=== PATIENT | female | born 1975 | race Caucasian/White ===

== ENCOUNTER 2020-08-22 10:56 | Outpatient (REF) | payer MEDICAID, SELFPAY | END 2020-08-22 10:57 | disposition home or self-care (01) | LOC: HO.SCI 10:56 | DX: Z13.89 Encounter for screening for other disorder (principal) ==

== ENCOUNTER 2020-10-31 12:08 | Outpatient (REF) | payer MEDICAID, SELFPAY ==
--- NOTE | 2020-10-31 12:12 | MM_ITS ---
EXAMINATION: MM SCREENING DIGITAL BREAST TOMOSYNTHESIS, BILATERAL CLINICAL INFORMATION: Screening. Asymptomatic. No prior breast imaging. Age 45. No known family history breast cancer. The lifetime risk of breast cancer based on the Tyrer-Cuzick Model is 11%. COMPARISON: None (current study represents initial baseline exam). TECHNIQUE: Digital breast tomosynthesis is performed in both the craniocaudal and mediolateral oblique views along with computer-aided detection (CAD). Synthesized 2D images are generated from the tomosynthesis. Additional exaggerated right CC view is provided. FINDINGS: The breasts are heterogeneously dense, which may obscure small masses (ACR BI-RADS breast composition Category c). The right breast shows no mass or architectural abnormality. Neither breast shows abnormal calcifications. The axilla and skin contours are unremarkable. The left breast has asymmetric density posterior outer quadrant on CC tomography, 5.8 cm from nipple. There is also asymmetric density 4:00 posterior position 4 cm from nipple on MLO view. These areas may be separate entities, and both possibly related to incompletely compressed glandular tissue. Patient will be recalled to fully characterize baseline appearance. MM/MM tomosynthesis screening BI IMPRESSION: 1. Left: Asymmetric densities posterior outer left breast. 2. Right: No mammographic evidence of malignancy. ASSESSMENT: BI-RADS 0: Incomplete - Need Additional Imaging Evaluation RECOMMENDATION: 1. Additional views of the left breast (3-D spot exaggerated CC, 3-D spot steep MLO). 2. Targeted ultrasound if warranted after review of the additional views. 3. Radiology department staff will contact the patient for additional imaging. This patient's information was entered into a reminder system with a target due date for their next mammogram.
== END 2020-10-31 12:09 | disposition home or self-care (01) ==
LOC: HO.MAMMO 12:08
PROVIDERS: PCP Student in an Organized Health Care Education/Training Program; Visit Provider Student in an Organized Health Care Education/Training Program
DX: Z12.31 Encounter for screening mammogram for malignant neoplasm of breast (principal)
CPT/HCPCS: 77063; 77067

== ENCOUNTER 2020-11-30 13:22 | Outpatient (REF) | payer MEDICAID, SELFPAY ==
--- NOTE | 2020-11-30 13:27 | MM_ITS ---
EXAMINATION: MM DIAGNOSTIC DIGITAL BREAST TOMOSYNTHESIS, LEFT CLINICAL INFORMATION: Recall from baseline exam for asymmetric density outer and lower left breast. TC score 11%. No family history breast cancer. COMPARISON: Mammography: 10/31/2020 (baseline) TECHNIQUE: Digital breast tomosynthesis is performed. 2D images are generated from the tomosynthesis. The following views are obtained: Spot MLO, exaggerated CC, spot exaggerated CC FINDINGS: The breasts are heterogeneously dense, which may obscure small masses (ACR BI-RADS breast composition Category c). Additional views show no mass or architectural abnormality or persistent focal asymmetric density. Results are discussed with the patient at time of visit. MM/MM tomosynthesis added views L IMPRESSION: Additional views show no persistent asymmetric density. ASSESSMENT: BI-RADS 2: Benign RECOMMENDATION: Routine annual mammography screening. This patient's information was entered into a reminder system with a target due date for their next mammogram.
== END 2020-11-30 13:23 | disposition home or self-care (01) ==
LOC: HO.MAMMO 13:22
PROVIDERS: PCP Student in an Organized Health Care Education/Training Program; Visit Provider Student in an Organized Health Care Education/Training Program
DX: R92.2 Inconclusive mammogram (principal)
CPT/HCPCS: 77061; 77065

== ENCOUNTER 2021-10-25 08:35 | Outpatient (REF) | payer MEDICAID, SELFPAY ==
--- NOTE | ~2021-10-25 | XR_ITS ---
EXAMINATION: XR LUMBOSACRAL SPINE CLINICAL INFORMATION: Low back pain COMPARISON: None TECHNIQUE: Three views of the lumbosacral spine. 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 Normal bony mineralization. No vertebral compression, spondylolisthesis, or disc space narrowing. No destructive process. There is a gentle dextrocurvature which could be positional. The SI joints and visualized sacrum are unremarkable. Large amount of stool is seen throughout the colon. No gaseous dilatation of bowel. XR/XR lumbar spine 2-3V IMPRESSION: Unremarkable examination.
== END 2021-10-25 08:36 | disposition home or self-care (01) ==
LOC: HO.XRAY 08:35
PROVIDERS: Absent Provider Student in an Organized Health Care Education/Training Program; PCP Student in an Organized Health Care Education/Training Program; Visit Provider Family Medicine
DX: M54.50 Low back pain, unspecified (principal)
CPT/HCPCS: 72100

== ENCOUNTER 2021-12-13 09:02 | Outpatient (REF) | payer MEDICAID, SELFPAY ==
--- NOTE | ~2021-12-13 | MM_ITS ---
EXAMINATION: MM SCREENING DIGITAL BREAST TOMOSYNTHESIS, BILATERAL CLINICAL INFORMATION: Screening. Asymptomatic. The lifetime risk of breast cancer based on the Tyrer-Cuzick Model is 10.2%. COMPARISON: Mammography: November 30, 2020 and October 31, 2020 TECHNIQUE: Digital breast tomosynthesis is performed in both the craniocaudal and mediolateral oblique views along with computer-aided detection (CAD). Synthesized 2D images are generated from the tomosynthesis. Additional left exaggerated craniocaudal view performed. FINDINGS: The breasts are heterogeneously dense, which may obscure small masses (ACR BI-RADS breast composition Category c). There are no significant masses, abnormal calcifications, or other abnormalities. MM/MM tomosynthesis screening BI IMPRESSION: There are no significant changes from prior study. ASSESSMENT: BI-RADS 1: Negative RECOMMENDATION: Routine annual mammography screening. This patient's information was entered into a reminder system with a target due date for their next mammogram.
== END 2021-12-13 09:03 | disposition home or self-care (01) ==
LOC: HO.MAMMO 09:02
PROVIDERS: Visit Provider Student in an Organized Health Care Education/Training Program
DX: Z12.31 Encounter for screening mammogram for malignant neoplasm of breast (principal)
CPT/HCPCS: 77063; 77067

== ENCOUNTER 2022-04-18 08:34 | Outpatient (REF) | payer MEDICAID, SELFPAY ==
--- NOTE | ~2022-04-18 | XR_ITS ---
EXAMINATION: XR KNEE, LEFT CLINICAL INFORMATION: Pain left knee COMPARISON: None TECHNIQUE: Four views of the left knee. FINDINGS: No fracture, dislocation, or suprapatellar effusion. Normal bony mineralization. No joint narrowing or erosive change or chondrocalcinosis. No lateralization or tilting patella. XR/XR knee LT 4V IMPRESSION: Normal left knee.
== END 2022-04-18 08:35 | disposition home or self-care (01) ==
LOC: HO.XRAY 08:34
PROVIDERS: PCP Student in an Organized Health Care Education/Training Program; Visit Provider Family Medicine
DX: M25.562 Pain in left knee (principal)
CPT/HCPCS: 73564

== ENCOUNTER 2022-12-16 07:34 | Outpatient (REF) | payer MEDICAID, SELFPAY ==
--- NOTE | ~2022-12-16 | MM_ITS ---
EXAMINATION: MM SCREENING DIGITAL BREAST TOMOSYNTHESIS, BILATERAL CLINICAL INFORMATION: Screening. Asymptomatic. The lifetime risk of breast cancer based on the Tyrer-Cuzick Model is 10%. COMPARISON: Mammography: 04/12/2022, 11/30/2020, 10/31/2020 (baseline). TECHNIQUE: Digital breast tomosynthesis is performed in both the craniocaudal and mediolateral oblique views along with computer-aided detection (CAD). Synthesized 2D images are generated from the tomosynthesis. FINDINGS: The breasts are heterogeneously dense, which may obscure small masses (ACR BI-RADS breast composition Category c). There are no significant masses, abnormal calcifications, or other abnormalities. Breast tissue composition borders on average fibroglandular. No architectural abnormality or developing density or significant change from prior studies. MM/MM tomosynthesis screening BI IMPRESSION: No mammographic evidence of malignancy. ASSESSMENT: BI-RADS 1: Negative RECOMMENDATION: Routine annual mammography screening. This patient's information was entered into a reminder system with a target due date for their next mammogram.
== END 2022-12-16 07:35 | disposition home or self-care (01) ==
LOC: HO.MAMMO 07:34
PROVIDERS: Visit Provider Student in an Organized Health Care Education/Training Program
DX: Z12.31 Encounter for screening mammogram for malignant neoplasm of breast (principal)
CPT/HCPCS: 77063; 77067

== ENCOUNTER 2023-12-23 07:03 | Outpatient (REF) | payer OTHER, MEDICAID, SELFPAY ==
--- NOTE | ~2023-12-23 | MM_ITS ---
EXAMINATION: MM SCREENING DIGITAL BREAST TOMOSYNTHESIS, BILATERAL CLINICAL INFORMATION: Screening. Asymptomatic. COMPARISON: Mammography: This study is compared with prior exams dating back to 10/31/2020 TECHNIQUE: Digital breast tomosynthesis is performed in both the craniocaudal and mediolateral oblique views along with computer-aided detection (CAD). Synthesized 2D images are generated from the tomosynthesis. 5 views in total. FINDINGS: The breasts are heterogeneously dense, which may obscure small masses (ACR BI-RADS breast composition Category c). There are no significant masses, abnormal calcifications, or other abnormalities. Parenchymal pattern is stable. MM/MM tomosynthesis screening BI IMPRESSION: No mammographic evidence of malignancy. ASSESSMENT: BI-RADS BI-RADS 1 - Negative RECOMMENDATION: Routine annual mammography screening. 1 year F/U This examination should not preclude the clinical evaluation of a suspicious palpable abnormality. This patient's information was entered into a reminder system with a target due date for their next mammogram.
== END 2023-12-23 07:04 | disposition home or self-care (01) ==
LOC: HO.MAMMO 07:03
PROVIDERS: PCP Student in an Organized Health Care Education/Training Program; Visit Provider Student in an Organized Health Care Education/Training Program
DX: Z12.31 Encounter for screening mammogram for malignant neoplasm of breast (principal)
CPT/HCPCS: 77063; 77067

== ENCOUNTER 2025-01-04 07:18 | Outpatient (REF) | payer OTHER, SELFPAY ==
--- NOTE | ~2025-01-04 | MM_ITS ---
EXAMINATION: MM SCREENING DIGITAL BREAST TOMOSYNTHESIS, BILATERAL CLINICAL INFORMATION: Screening. Asymptomatic. COMPARISON: Mammography: Comparison is made with available priors TECHNIQUE: Digital breast mammography with tomosynthesis is performed in both the craniocaudal and mediolateral oblique views along with computer-aided detection (CAD). FINDINGS: The breasts are heterogeneously dense, which may obscure small masses (ACR BI-RADS breast composition Category c). There are no significant masses, abnormal calcifications, or other abnormalities. MM/MM tomosynthesis screening BI IMPRESSION: No mammographic evidence of malignancy. ASSESSMENT: BI-RADS BI-RADS 1 - Negative RECOMMENDATION: Routine annual mammography screening. 1 year F/U This examination should not preclude the clinical evaluation of a suspicious palpable abnormality. This patient's information was entered into a reminder system with a target due date for their next mammogram. Electronically signed by: Carmen Lawrence DO 01/06/2025 06:10 AM [facility]
--- OUTSIDE RECORDS SUMMARY | 2025-01-04 07:21 | XMS_ITS | Clinical Summary ---
Author Organization [employer] Address [address] [place] [address] [address] [place] [address] Care Team Providers Care Molder Labels Name Role Phone Ana Prather MD Primary Care Provider [phone] Social History Tobacco Use Types Packs/Day Years Used Date Smoking Tobacco: Never Assessed Comments Unknown Sex and Gender Information Value Date Recorded Sex Assigned at Female 09/02/2022 10:37 AM EDT Legal Sex Female 10:37 AM EDT Gender Identity Female 09/02/2022 10:37 AM EDT Sexual Orientation Straight 09/02/2022 10 :37 AM EDT Last Filed Vital Signs Vital Sign Reading Time Taken Comments Blood Pressure 116/68 04/16/2022 12:06 AM EDT Pulse 76 04/16/2022 12:06 AM EDT Temperature - - Respiratory Rate - - Oxygen Saturation - - Inhaled Oxygen Concentration - - Weight 62.1 kg (137 lb) 04/16/2022 12:06 AM EDT Height 167 cm (5' 5.75 ) 04/16/2022 12:06 AM EDT Body Mass Index 22.28 04/16/2022 12:06 AM EDT Plan of Treatment Health Maintenance Due Date Last Done Comments CT Colonography 1974 Colonoscopy 1974 Colorectal Cancer Screening 1974 Depression Screening 1974 FIT DNA/Cologuard 1974 FIT 1974 FOBT 1974 Sigmoidoscopy 1974 Alcohol/Substance Use Screening 1986 Tobacco Screening 1986 Family Planning (PISQ) 1989 Hepatitis B Vaccines (1 of 3 - 19+ 3-dose series) 1993 Pap Smear 10/03/2023 10/03/2020 Pneumococcal Vaccine: 50+ Years (1 of 1 - PCV) 2024 Zoster Vaccines (1 of 2) 2024 COVID-19 Vaccine (3 - season) 2024 04/19/2021, 03/22/2021 Influenza Vaccine (#1) 2024 10/03/2020 Mammogram 12/23/2024 12/23/2023, 12/04, 12/13/2021, Additional history exists Cervical Cancer Screening 10/03/2025 HPV/Cotest 10/03/2025 10/03/2020 DTaP/Tdap/Td Vaccines (2 - Td or Tdap) 10/03/2030 10/03/2020 RSV Patients and Patients Aged 60 years or older (1 - 1-dose 75+ series) 2049 HIB Vaccines Aged Out No longer eligi ble based on patient's age to complete this topic HPV Vaccines Aged Out No longer eligi ble based on patient's age to complete this topic Hepatitis A Vaccines Aged Out No long er eligible based on patient's age to complete this topic IPV Vaccines Aged Out No longer eligi ble based on patient's age to complete this topic Meningococcal Vaccine Aged Out No michelle shantell eligible based on patient's age to complete this topic Pneumococcal Vaccine: Pediatrics (0 to 5 Years) and At-Risk Patients (6 to 49) Years) Aged Out No longer eligible based on patient's age to complete this topic RSV under 20 months Aged Out No longe r eligible based on patient's age to complete this topic Rotavirus Vaccines Aged Out No longer eligible based on patient's age to complete this topic Procedures Procedure Name Priority Date/Time Associated Diagnosis Comments BI MAMMOGRAM SCREENING TOMOSYNTHESIS BILATERAL Routine 12/23/2023 7:38 AM EST HPV MRNA E6/E7 Routine 10/03/2020 11:05 AM EST THINPREP PAP Routine 10/03/2020 11:05 AM EST from Last 3 Months or Most Recently Relevant to Health Maintenance Results * BI Mammogram Screening Tomosynthesis Bilateral (12/23/2023 7:38 AM EST) Anatomical Region Laterality Modality Breast Bilateral Mammography 12/23/2023 7:38 AM EST Narrative 12/30/2023 10:03 AM EST ? [facility] ? [address] ?[place] [address] ? Mammography Report ? Signed ? Patient: Syper,Aminta ?MR#: [id number] ? : 1975 ?Acct:[id number] ? Age/Sex: 48 / F ?ADM Date: 12/23/23 ? Loc: HO.MAMMO ? Attending Dr: Ana Prather MD ? Ordering Physician: Ana Prather MD ?Results: 1Negati ?? ve ? Date of Service: 12/23/23 ?Follow Up: 1 Year From Orig ?? inal Mammogram ? Procedure(s): MM tomosynthesis screening BI ?? Accession Number(s): [id number] ? cc: Ana Prather MD ? EXAMINATION: ?? MM SCREENING DIGITAL BREAST TOMOSYNTHESIS, BILATERAL ? CLINICAL INFORMATION: ? Screening. Asymptomatic. ? COMPARISON: ?? Mammography: This study is compared with prior exams dating back to ?? 10/31/2020 ? TECHNIQUE: ?? Digital breast tomosynthesis is performed in both the craniocaudal and ?? mediolateral oblique views along with computer-aided detection (CAD). ?? Synthesized 2D images are generated from the tomosynthesis. ??5 views in ?? total. ? FINDINGS: ?? The breasts are heterogeneously dense, which may obscure small masses ?? (ACR BI-RADS breast composition Category c). ? There are no significant masses, abnormal calcifications, or other ?? abnormalities. ?? Parenchymal pattern is stable. ? MM/MM tomosynthesis screening BI ?? IMPRESSION: ?? No mammographic evidence of malignancy. ? ASSESSMENT: ? BI-RADS BI-RADS 1 - Negative ? RECOMMENDATION: ?? Routine annual mammography screening. ? 1 year F/U ? This examination should not preclude the clinical evaluation of a ?? suspicious palpable abnormality. ? This patient's information was entered into a reminder system with a ?? target due date for their next mammogram. ? Dictated By: ?Gracie Pagan MD ? Signed By: ?<Electronically signed by Gracie Pagan MD in OV> ?12/30/23 0958 ? DD/ 0738 ? TD/TT: ? [facility] Guide: ? Procedure Note Kevin, Image - 12/30/2023 [facility] [address] [place] [address] Mammography Report Signed Patient: Anam Augustin#: [id number] : 1975Acct:[id number] Age/Sex: 48 / FADM Date: 12/23/23 Loc: [facility]MO Attending Dr: Ana Prather MD Ordering Physician: Ana Prather MDResults: 1Negati ve Date of Service: 12/23/23Follow Up: 1 Year From Orig inal Mammogram Procedure(s): MM tomosynthesis screening BI Accession Number(s): [id number] cc: Ana Prather MD EXAMINATION: MM SCREENING DIGITAL BREAST TOMOSYNTHESIS, BILATERAL CLINICAL INFORMATION: Screening. Asymptomatic. COMPARISON: Mammography: This study is compared with prior exams dating back to 10/31/2020 TECHNIQUE: Digital breast tomosynthesis is performed in both the craniocaudal and mediolateral oblique views along with computer-aided detection (CAD). Synthesized 2D images are generated from the tomosynthesis. 5 views in total. FINDINGS: The breasts are heterogeneously dense, which may obscure small masses (ACR BI-RADS breast composition Category c). There are no significant masses, abnormal calcifications, or other abnormalities. Parenchymal pattern is stable. MM/MM tomosynthesis screening BI IMPRESSION: No mammographic evidence of malignancy. ASSESSMENT: BI-RADS BI-RADS 1 - Negative RECOMMENDATION: Routine annual mammography screening. 1 year F/U This examination should not preclude the clinical evaluation of a suspicious palpable abnormality. This patient's information was entered into a reminder system with a target due date for their next mammogram. Dictated By: Gracie Pagan MD Signed By: <Electronically signed by Gracie Pagan MD in OV> 12/30/23 0958 DD/ 0738 TD/TT: [facility] Guide: Ana Prather MD IMG BI PROCEDURES Final Result * THINPREP PAP (10/03/2020 11:05 AM EST) Clinical Information: None given [facility] COMMENT SEE COMMENT [facility] Comment: EXPLANATORY NOTE: ? The Pap is a screening test for cervical cancer. It is ?? not a diagnostic test and is subject to false negative ?? and false positive results. It is most reliable when a ?? satisfactory sample, regularly obtained, is submitted ?? with relevant clinical findings and history, and when ?? the Pap result is evaluated along with historic and ?? current clinical information. ?? Shipping Clerk Packing : SEE COMMENT [facility] Comment: JNA, CT(ASCP) CT screening location: [address] ??[address] Interpretation/R esult: Negative for intraepithelial lesion or malignancy. [facility] LMP: NONE [facility]IV[facility] Prev. BX: NONE [facility]IVEN [facility] Prev. PAP: NONE [facility]IVEN [facility] SOURCE: None given [facility] Statement Of Adequacy: SEE COMMENT [facility] Comment: Satisfactory for evaluation. Endocervical/transformation zone component present. Age and/or menstrual status not provided 10/03/2020 11:0 5 AM EST [facility] ORDERABLES Final Result Performing Organization Address [facility] de Phone Number [facility] [address] * HPV mRNA E6/E7 (10/03/2020 11:05 AM EST) HPV nRNA E6/E7 Not Detected Not Detected [facility] Comment: This test was performed using the APTIMA HPV Assay ([employer] This assay detects E6/E7 viral messenger RNA (mRNA) from 14 high-risk HPV types (16,18,31,33,35,39,45,51,52,56,58,59,66,68). ?? The analytical performance characteristics of this assay have been determined by [employer]. The modifications have not been cleared or approved by the FDA. This assay has been validated pursuant to the CLIA regulations and is used for clinical purposes. 10/03/2020 11:0 5 AM EST [facility] BLOOD ORDERABLES Adela l Result Performing Organization Address [facility] Co de Phone Number [facility] [address] from Last 3 Months or Most Recently Relevant to Health Maintenance Care Teams Molder Labels Relationship Specialty Start Date End Date Ana Prather MD [address] [place] [id number] PCP - General Family Medicine 08/22/20
== END 2025-01-04 07:19 | disposition home or self-care (01) ==
LOC: HO.MAMMO 07:18
PROVIDERS: PCP Student in an Organized Health Care Education/Training Program; Visit Provider Student in an Organized Health Care Education/Training Program
DX: Z12.31 Encounter for screening mammogram for malignant neoplasm of breast (principal)
CPT/HCPCS: 77063; 77067

== ENCOUNTER → 2025-01-04 07:30 | Outpatient (BNV) | payer OTHER, SELFPAY | PROVIDERS: PCP Student in an Organized Health Care Education/Training Program; Visit Provider Internal Medicine | DX: Z12.31 Encounter for screening mammogram for malignant neoplasm of breast (principal) | CPT/HCPCS: 77063; 77067 ==

== ENCOUNTER 2025-10-03 07:07 | Outpatient (REF) | payer OTHER, SELFPAY ==
--- OUTSIDE RECORDS SUMMARY | 2025-10-10 21:44 | XMS_ITS ---
Author Name [facility] Organization Unknown Encounters Encounter Type Encounter Reason Primary Diagnosis Location Date Ambulatory [facility] [place] 05/21/2024
--- OUTSIDE RECORDS SUMMARY | 2025-10-10 21:44 | XMS_ITS | Clinical Summary ---
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 10/23/2021 Active naproxen (Naprosyn) 500 MG tablet Take 1 tablet (500 mg) by mouth 2 times daily. 60 tablet 08/17/2025 Active Problems No known active problems Encounters Date Type Department Care Team Description 10/10/2025 Results Follow-Up [facility] [address] [place] [phone] Ruperto Galo CNM Pap Smear 09/28/2025 10:15 AM EST Procedure Visit [address] [address] Ruperto Galo CNM Cervical cancer screening (Primary Dx); Cervical mass 09/28/2025 Travel 09/27/2025 Telephone [facility] [address] [place] [phone] Ruperto Galo CNM Chart Prep 09/27/2025 Travel 08/17/2025 9:00 AM EDT Office Visit [facility] [address] [place] [address] Ana Prather MD Vitamin D deficiency (Primary Dx); Other fatigue; Screening for colon cancer 08/17/2025 Travel 08/16/2025 Telephone [facility] [address] [place] [address] Ana Prather MD Chart Prep 08/10/2025 Patient Outreach [facility] [address] [place] [address] Ryder Jamison MD Pre-visit Planning (SDOH screening negative and Tobacco screening negative) 08/10/2025 Travel 07/26/2025 Telephone [facility] [address] [place] [address] Cara Quiñones MA from Last 3 Months Immunizations Immunization Administration Dates Next Due MMR 10/12/2020,09/14/2020 TD (adult), 2 Lf tetanus tox oid, preservative free, adsorbed 07/04/2015 Tdap 10/03/2020 Varicella 11/29/2020,10/31/2020 Family History Medical History Relation Name Comments Parkinsonism Father Heart attack Mother Cancer Sister 1 Kidney cancer Sister 2 Breast cancer Neg Hx Colon cancer Neg Hx Ovarian cancer Neg Hx Relation Name Status Comments Brother Alive Father Mother Sister 1 Alive Sister 2 Alive Social History Tobacco Use Types Packs/Day Years Used Date Smoking Tobacco: Never Passive Smoke Exposure: Never Smokeless Tobacco: Never Depression Answer Date Recorded Patient Health Questionnaire-9 Score 1 08/17/2025 Patient Health Questionnaire-9 Score 1 08/17/2025 Last PHQ-9: Questionnaire Data Not on file 1 Housing Stability Answer Date Recorded What is your housing situation today? I have chiquimatt currie 08/10/[address] you li ve. Do you have problems with any of the following? None of the above 08/10/2025 Food Insecurity Answer Date Recorded Within the past 12 months, y ou worried that your food would run out before you got money to buy more: Never True 08/10/2025 Within the past 12 months,th e food you bought just didn't last and you didn't have enough money to get more: Never True 06/2025 Transportation Answer Date Recorded In the past 12 months, has l ack of transportation kept you from medical appts, meetings, work or from getting things needed for daily living? No 08/10/2025 Utilities Answer Date Recorded In the past 12 months, has t he electric, gas, oil or water company threatened to shut off services in your home? No 08/10/2025 Depression Answer Date Recorded Patient Health Questionnaire-2 Score 0 08/17/2025 Internet Access Answer Date Recorded Internet Access Q1 Yes 08/10/2025 Internet Access Q2 Not on file 08/10/2025 Comments No Intention Date Recorded No desire to become (finding) 1 11/28/2024 Sex and Gender Information Value Date Recorded Sex Assigned at Female 09/02/2022 10:37 AM EDT Legal Sex Female 10:37 AM EDT Gender Identity Female 09/02/2022 10:37 AM EDT Sexual Orientation Straight 09/02/2022 10 :37 AM EDT Last Filed Vital Signs Vital Sign Reading Time Taken Comments Blood Pressure 110/68 09/28/2025 10:06 AM EST Pulse 70 09/28/2025 10:06 AM EST Temperature 36.2 C (97.1 F) 09/28/2025 10:06 AM EST Respiratory Rate 14 09/28/2025 10:06 AM EST Oxygen Saturation 98% 09/28/2025 10:06 AM EST Inhaled Oxygen Concentration - - Weight 58.6 kg (129 lb 3.2 oz) 09/28/2025 10:06 AM EST Height 160 cm (5' 3 ) 08/17/2025 8:53 AM EDT Body Mass Index 22.89 08/17/2025 8:53 AM EDT Plan of Treatment Health Maintenance Due Date Last Done Comments CT Colonography 1975 Colonoscopy 1975 FIT 1975 Sigmoidoscopy 1975 Pneumococcal Vaccine: 50+ Years (1 of 1 - PCV) 2024 Zoster Vaccines (1 of 2) 2024 Pap Smear 09/29/2025 09/28/2025, 10/03/2020 HIV Screening 11/03/2025 Postponed from 1974 (Patient Refused) Mammogram 01/04/2026 01/04/2025, 02/, 12/16/2022, Additional history exists Influenza Vaccine (#1) 2026 10/03/2020 Postp oned from 07/04/2025 (Patient Refused) SDOH Screening 08/10/2026 08/10/2025 Alcohol/Substance Use Screening 08/17/2026 08/17/2025 COVID-19 Vaccine ( season) 2026 04/19/2021, 03/22/2021 Postponed from 07/04/2025 (Patient Refused) Depression Screening 08/17/2026 08/17/2025, 08/17/20 FOBT 08/24/2026 08/24/2025 Disability Screening 09/27/2026 09/27/2025 Family Planning (PISQ) 09/28/2026 09/28/2025 Hepatitis C Screening 09/28/2026 Postpo johanny from 1992 (Patient Refused) Tobacco Screening 09/28/2026 09/28/2025 Colorectal Cancer Screening 08/24/2028 FIT DNA/Cologuard 08/24/2028 08/24/2025 Cervical Cancer Screening 09/28/2030 HPV/Cotest 09/28/2030 09/28/2025, 10/03/2020 DTaP/Tdap/Td Vaccines (2 - Td or Tdap) 10/03/2030 10/03/2020, 07/04/2015 RSV Patients and Patients Aged 60 years [...] patient's age to complete this topic Hepatitis B Vaccines Discontinued IPV Vaccines Aged Out No longer eligi ble based on patient's age to complete this topic Meningococcal B Vaccine Aged Out No l onger eligible based on patient's age to complete [...] Procedure Name Priority Date/Time Associated Diagnosis Comments PAP SMEAR Routine 09/28/2025 10:00 AM EST Cervical cancer screening HPV DNA, LOW/HIGH RISK Routine 10:00 AM EST LAB COLOGUARD COLON CANCER SCREEN Routine 08/24/2025 6:05 AM EDT Screening for colon cancer BI MAMMOGRAM SCREENING TOMOSYNTHESIS BILATERAL Routine 01/04/2025 7:30 AM EST from Last 3 Months or Most Recently Relevant to Health Maintenance Results * HPV DNA, Low/High Risk (09/28/2025 10:00 AM EST) HPV High Risk Negative Negative [facility] HPV Genotype 16 Negative Negative [facility] HPV Genotype 18 Negative Negative [facility] Comment:HPV testing performe d at [facility] (CLIA#[id number]), [address] [place] [address].Testing for HPV was performed using the [employer] MELVINA 6800system. The presence of HPV in the female genital tract isassociated with a number of diseases, including cervicalcarcinoma. The HPV DNA high risk pool tests for HPV 31, 33,35, 39, 45, 51, 52, 56, 58, 59, 66 and 68. The testing forHPV 16 and 18 genotypes has also been performed. A positiveresult indicates detection of nucleic acid sequences fromone or more subtypes, whereas a negative result indicatessuch sequences were not detected. 09/28/2025 10:0 0 AM EST 10/03/2025 7:47 AM EST Ruperto Galo [facility] BLOOD ORDERABLES Adela tanner Result [facility] [address] [place] [address] [phone] * Pap Smear (09/28/2025 10:00 AM EST) Swab Cervix uteri structure / Unknown 09/28/2025 10:00 AM EST 10/03/2025 7:07 AM EST Narrative [facility] - 10/07/2025 3:32 PM EST ----- ------- Name: Aminta Augustin Age/Sex: 50/F : 1975 Unit#: [id number] Attend Dr: Re09/28/25 Status: PRE REF Location: [facility] Disch: ----- ------- SPEC : [id number] RECD: 10/03/25 STATUS: MEGAN GOLDSMITH NUM: [id number] WLILIE: 09/28/[address] [facility] [address]: RUPERTO GALO [facility] ENTERED: 10/03/25 SP TYPE: Pap Smr OT DR: ORDERED: Pap Smear, PAP path review Interpretation Unsatisfactory Unsatisfactory for evaluation (following reprocessing with acid wash procedure), but unsatisfactory for evaluation of epithelial abnormality because of scant squamous epithelial component. HPV High Risk: Negative HPV Genotyping 16: Negative HPV Genotyping 18: Negative Clinical Information LMP: Previous PAP test: NIL/HPV- 2019 Other surgery: Other history: Material Received ThinPrep-Cervical ----- ------- Signed (signature on file) Janet Mac MD 10/07/25 1532 ----- ------- END OF REPORT us Ruperto Galo [facility] CYTOLOGY ORDERABLES F inal Result [facility] [address] [place] [phone] * Cologuard?? colon cancer screening (08/24/2025 6:05 AM EDT) Pathologist [facility] Cologuard Result Negative Negative 08/28/20 8:40 AM EDT [employer] (CLIA #:[id number]) Comment: The Cologuard (TM) test was performed on this specimen. NEGATIVE TEST RESULT. A negative Cologuard result indicates a low likelihood that a colorectal cancer (CRC) or advanced adenoma (adenomatous polyps with more advanced pre-malignant features) is present. The chance that a person with a negative Cologuard test has a colorectal cancer is less than 1 in 1500 (negative predictive value >99.9%) or has an advanced adenoma is less than 5.3% (negative predictive value 94.7%). These data are based on a prospective cross-sectional study of 10,000 individuals at average risk for colorectal cancer who were screened with both Cologuard and colonoscopy. (Jaylen Dalal. et al, N Engl J Med 2014;370(14):1286- 1297) The normal value (reference range) for this assay is negative. COLOGUARD RE-SCREENING RECOMMENDATION: Periodic colorectal cancer screening is an important part of preventive healthcare for asymptomatic individuals at average risk for colorectal cancer. Following a negative Cologuard result, the [place] Cancer Society and U.S. Multi-Society Task Force screening guidelines recommend a Cologuard re-screening interval of 3 years. References: [place] [employer] Guideline for Colorectal Cancer Screening: https://www.cancer.org/cancer/aiczv-pyrqsa-mactxr/znhgrrrgr-hqpqbrxkj-shhbamf/ac s-rec ommendations.html.; Jose DK, Valeriano BRICEÑO, Margaret SANTIAGO, Colorectal Cancer Screening: Recommendations for Physicians and Patients from the U.S. Multi-Society Task Force on Colorectal Cancer Screening , Am J Gastroenterology 2017; 112:2274-3461. TEST DESCRIPTION: Composite algorithmic analysis of stool DNA-biomarkers with hemoglobin immunoassay. Quantitative values of individual biomarkers are not reportable and are not associated with individual biomarker result reference ranges. Cologuard is intended for colorectal cancer screening of adults of either sex, 45 years or older, who are at average-risk for colorectal cancer (CRC). Cologuard has been approved for use by the U.S. FDA. The performance of Cologuard was established in a cross sectional study of average-risk adults aged 50-84. Cologuard performance in patients ages 45 to 49 years was estimated by sub-group analysis of near-age groups. Colonoscopies performed for a positive result may find as the most clinically significant lesion: colorectal cancer [4.0%], advanced adenoma (including sessile serrated polyps greater than or equal to 1cm diameter) [20%] or non- advanced adenoma [31%]; or no colorectal neoplasia [45%]. These estimates are derived from a prospective cross-sectional screening study of 10,000 individuals at average risk for colorectal cancer who were screened with both Cologuard and colonoscopy. (Jaylen Oliver al, N Engl J Med 2014;370(14):2973-7979.) Cologuard may produce a false negative or false positive result (no colorectal cancer or precancerous polyp present at colonoscopy follow up). A negative Cologuard test result does not guarantee the absence of CRC or advanced adenoma (pre-cancer). The current Cologuard screening interval is every 3 years. ([place] [employer] and U.S. Multi-Society Task Force). Cologuard performance data in a 10,000 patient pivotal study using colonoscopy as the reference method can be accessed at the following location: www.[employer]/results. Additional description of the Cologuard test process, warnings and precautions can be found at www.cologuard.com. Stool specimen (specimen) 08/24/2025 6:05 AM EDT 08/25/2025 10:41 AM EDT Ana Prather MD LAB MOLECULAR DIAGNOSTICS ORDERA BLES Final Result [facility] (CLIA #:[id number]) [address] [place] [address], * BI Mammogram Screening Tomosynthesis Bilateral (01/04/2025 7:30 AM EST) Anatomical Region Laterality Modality Breast Bilateral Mammography 01/04/2025 7:30 AM EST Narrative 01/06/2025 6:12 AM EST [facility]'[address] [place] [address] Mammography Report Signed Patient: Aminta Augustin MR#: [id number] : 1975 Acct:[id number] Age/Sex: 49 / F ADM Date: 01/04/25 Loc: HO.MAMMO Attending Dr: Ana Prather MD Ordering Physician: Ana Prather MD Results: 1Negati ve Date of Service: 01/04/25 Follow Up: 1 Year From [facility] Mammogram Procedure(s): MM tomosynthesis screening BI Accession Number(s): [id number] cc: Ana Prather MD EXAMINATION: MM SCREENING DIGITAL BREAST TOMOSYNTHESIS, BILATERAL CLINICAL INFORMATION: Screening. Asymptomatic. COMPARISON: Mammography: Comparison is made with available priors TECHNIQUE: Digital breast mammography with tomosynthesis is performed in both the craniocaudal and mediolateral oblique views along with computer-aided detection (CAD). FINDINGS: The breasts are heterogeneously dense, which may obscure small masses (ACR BI-RADS breast composition Category c). There are no significant masses, abnormal calcifications, or other abnormalities. MM/MM tomosynthesis screening BI IMPRESSION: No mammographic evidence of malignancy. ASSESSMENT: BI-RADS BI-RADS 1 - Negative RECOMMENDATION: Routine annual mammography screening. 1 year F/U This examination should not preclude the clinical evaluation of a suspicious palpable abnormality. This patient's information was entered into a reminder system with a target due date for their next mammogram. Electronically signed by: Carmen Lawrence DO 01/06/2025 06:10 AM EST Dictated By: Carmen Lawrence DO Signed By: <Electronically signed by Carmen Lawrence DO in OV> 01/06/25 0610 DD/ 0730 TD/TT: 01/04/25 0743 Salary Manager: Procedure Note Donotuseinterpreter, Image - 01/06/2025 [facility] [address] [place], [place] [address] Mammography Report Signed Patient: Anam Augustin#: [id number] : 1975Acct:[id number] Age/Sex: 49 / FADM Date: 01/04/25 Loc: HO.MAMMO Attending Dr: Ana Prather MD Ordering Physician: Ana Prather MDResults: 1Negati ve Date of Service: 01/04/25Follow Up: 1 Year From Orig in[facility] Mammogram Procedure(s): MM tomosynthesis screening BI Accession Number(s): [id number] cc: Ana Prather MD EXAMINATION: MM SCREENING DIGITAL BREAST TOMOSYNTHESIS, BILATERAL CLINICAL INFORMATION: Screening. Asymptomatic. COMPARISON: Mammography: Comparison is made with available priors TECHNIQUE: Digital breast mammography with tomosynthesis is performed in both the craniocaudal and mediolateral oblique views along with computer-aided detection (CAD). FINDINGS: The breasts are heterogeneously dense, which may obscure small masses (ACR BI-RADS breast composition Category c). There are no significant masses, abnormal calcifications, or other abnormalities. MM/MM tomosynthesis screening BI IMPRESSION: No mammographic evidence of malignancy. ASSESSMENT: BI-RADS BI-RADS 1 - Negative RECOMMENDATION: Routine annual mammography screening. 1 year F/U This examination should not preclude the clinical evaluation of a suspicious palpable abnormality. This patient's information was entered into a reminder system with a target due date for their next mammogram. Electronically signed by: Carmen Lawrence DO 01/06/2025 06:10 AM [facility] Dictated By: Carmen Lawrence DO Signed By: <Electronically signed by Carmen Lawrence DO in OV> 01/06/2510 DD/ 9 TD/TT: 01/04/25 0743 Salary Manager: Ana Prather MD IMG BI PROCEDURES Final Result from Last 3 Months or Most Recently Relevant to Health Maintenance Insurance (Home) [address] [place] [address] [facility] , [address] [place] [address] (Home) [place] [address] (Home) [address] [place] [address]
--- OUTSIDE RECORDS SUMMARY | 2025-10-10 21:44 | XMS_ITS | Encounter Summary ---
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 Unavailable Primary Care Provider Unavailabl e Reason for Visit * Reason Onset Date Comments Results 10/10/2025 Encounter Details Date Type Department Care Team ([facility] st Contact Info) Description 10/10/2025 Results Follow-Up [facility] [address] [place] [address] Cecile Castro CNM [address] [place] [address] Pap Smear Social History Tobacco Use Types Packs/Day Years Used Date Smoking Tobacco: Never Passive Smoke Exposure: Never Smokeless Tobacco: Never Depression Answer Date Recorded Patient Health Questionnaire-9 Score 1 08/17/2025 Patient Health Questionnaire-9 Score 1 08/17/2025 Last PHQ-9: Questionnaire Data Not on file 1 Housing Stability Answer Date Recorded What is your housing situation today? I have chiqui currie 08/10/[address] you [...] Q2 Not on file 08/10/2025 Comments No Sex and Gender Information Value Date Recorded Sex Assigned at Female 09/02/2022 10:37 AM EDT Legal Sex Female 10:37 AM EDT Gender Identity Female 09/02/2022 10:37 AM EDT Sexual Orientation Straight 09/02/2022 10 :37 AM EDT documented as of this encounter Miscellaneous Notes * Telephone Encounter - Aby Jeronimo RN - 10/10/2025 1:33 PM EST Telephone call placed to pt. Informed HPV negative. Unfortunately PAP wasn't able to be run. Recommended repeat pap in a few months. Apologized for the inconvenience. Pt very agreeable states she would like to redo it. Recall updated to reflect that she needs new pap in 2-4 months. * Telephone Encounter - Aby Jeronimo RN - 10/10/2025 1:28 PM EST ----- Message from Cecile Castro sent at 10/10/2025 11:57 AM EST ----- Please let Aminta know I didn't get a good enough sample for her pap, so we should repeat in 2-4 months. I apologize for inconvenience. Thanks! ----- Message ----- From: Kristie, Lab Results In Sent: 10/07/2025 3:32 PM EST To: Cecile Castro CNM * Result Encounter Note - Cecile Castro CNM - 10/10/2025 11:57 AM EST Please let Aminta know I didn't get a good enough sample for her pap, so we should repeat in 2-4 months. I apologize for inconvenience. Thanks! documented in this encounter Plan of Treatment Not on file documented as of this encounter Visit Diagnoses Not on filedocumented in this encounter Additional Health Concerns Assessment Noted Time PHQ-9 Depression Total Score: 1 08/17/20 25 9:44 AM EDT documented as of this encounter
== END 2025-10-03 07:08 ==
LOC: HO.LNP 07:07
PROVIDERS: Visit Provider Advanced Practice Midwife
DX: Z12.4 Encounter for screening for malignant neoplasm of cervix (principal)
CPT/HCPCS: 87626; 88175